=== PATIENT | female | born 1985 | race African-American/Black ===

== ENCOUNTER 2025-02-19 07:52 | Emergency (ER) | payer OTHER ==
[~2025-02-19] VITALS: Ht 177.8 cm; Wt 100.0 kg
[2025-02-19 07:57] VITALS: O2SAT 99
[2025-02-19 09:55] VITALS: BP 148/88; PULSE 80; RESP 15; TEMP 37.1; O2SAT 100
== END 2025-02-19 09:56 | disposition home or self-care (01) ==
LOC: ER 07:52
DX: T74.21XA Adult sexual abuse, confirmed, initial encounter (principal); X58.XXXA Exposure to other specified factors, initial encounter; Y93.89 Activity, other specified; Y92.89 Other specified places as the place of occurrence of the external cause; Y99.8 Other external cause status
CPT/HCPCS: 99283

== ENCOUNTER 2025-03-05 13:21 | Emergency (ER) | payer OTHER ==
[~2025-03-05] VITALS: Ht 177.8 cm; Wt 131.5 kg
[2025-03-05 13:25] VITALS: BP 153/94; PULSE 89; RESP 16; TEMP 37.1; O2SAT 100
[2025-03-05 13:28] VITALS: O2SAT 100
[2025-03-05 13:49] LABS: CLARITY URINE CLEAR (CLEAR); COLOR URINE ORANGE (YELLOW); GLUCOSE URINE NEGATIVE (NEGATIVE); KETONES URINE NEGATIVE (NEGATIVE); LEUKOCYTE ESTERASE URINE 1+ (NEGATIVE); NITRITE URINE NEGATIVE (NEGATIVE); OCCULT BLOOD URINE 3+ (NEGATIVE); PH URINE 6.5 (4.5-8.0); PROTEIN URINE NEGATIVE (NEGATIVE); SPECIFIC GRAVITY URINE 1.009 (1.005-1.030); UROBILINOGEN URINE 0.2 E.U./dL (0.2-1.0)
[2025-03-05] MEDS: DOXYCYCLINE HYCLATE 100MG CAPSULE PO ONE (15:09)
[2025-03-05] MEDS: CEFTRIAXONE SODIUM 500MG VIAL IM ONE (15:09)
[2025-03-05] MEDS: PENICILLIN G BENZATHINE 2,400,000 UNITS/4ML SYR IM ONE (15:10)
[2025-03-05] MEDS: LIDOCAINE HCL/PF 1% 10 MG/ML 5ML VIAL INFIL ONE (15:10)
[2025-03-05 15:28] LABS: SQUAMOUS EPITHELIAL CELL URINE 1+ /lpf (RARE/1+)
[2025-03-05 15:29] LABS: BACTERIA URINE 1+; RBC URINE TNTC /hpf (0-2); WBC URINE NONE SEEN /hpf (0-2)
[2025-03-05] MEDS ORDERED: DOXY-461 MT (16:37)
[2025-03-05] MEDS ORDERED: METR-167 MT (16:37)
== END 2025-03-05 19:14 | disposition home or self-care (01) ==
LOC: ER 13:21
DX: N76.0 Acute vaginitis (principal); Z98.890 Other specified postprocedural states
CPT/HCPCS: 81003; 81025; 82962; 87086; 96372; 99284; J0696; J2003; J0561; Z7610